=== PATIENT | male | born 1975 | race Caucasian/White ===

== ENCOUNTER 2016-10-31 01:17 | Emergency (ER) | payer OTHER ==
[~2016-10-31 01:17] MED LIST: CARAFATE1 GM/10 ML PO; HYDROCHLOROTH12.5 MG PO; PROTONIX 40MG T40 MG PO; SIMV10 PO; TOPROL XL 25MG25 MG PO
--- NOTE | 2016-10-31 02:20 | ED THROAT/DENTAL COMPLAINT ---
See Addendum History of Present Illness General Chief Complaint: Sore Throat, Dental Pain Stated Complaint: SORE THROAT "IT'S CUTTING MY AIR OFF" O2 97% Source: patient Exam Limitations: no limitations Vital Signs & Intake/Output Vital Signs & Intake/Output TRAIGE REVIEWED Allergies Coded Allergies: NO KNOWN ALLERGIES (06/01/15) Reconcile Medications Hydrochlorothiazide 12.5 MG CAP 1 CAP PO DAILY BP (Reported) Metoprolol Succ XL (Toprol XL 25MG) 25 MG TAB 1 TAB PO DAILY BP (Reported) Pantoprazole Sodium (Protonix) 40 MG TAB 40 MG PO DAILY ACID REFLUX Simvastatin (Zocor) 10 MG TAB 10 MG PO DAILY CHOLESTEROL (Reported) Sucralfate (Carafate) 1 GM/10 ML CARMEN 10 ML PO Q6H PRN ABDOMINAL PAIN Triage Nurses Notes Reviewed? yes HPI: Patient presents for evaluation of sore throat pain and the feeling of throat swelling that began yesterday. Patient states he began experiencing a sore throat yesterday morning and he began feeling the throat swelling at about 5 PM yesterday. The pain feels like a constant bruised feeling and that it is compressing his airway. At 10:00 yesterday evening he tried Motrin and Chloraseptic and cough drops without improvement. The pain worsens with swallowing. Patient denies any associated fever or cold symptoms. Patient is also having some mild shortness of breath due to symptoms. The pain is characterized currently at about 4 out of 10. Past History Medical History Any Pertinent Medical History? see below for history Neurological: NONE EENT: NONE Cardiovascular: hypertension, hyperlipidemia Respiratory: NONE Gastrointestinal: PANCREATITIS Hepatic: NONE Renal: NONE Musculoskeletal: NONE Psychiatric: NONE Endocrine: NONE Blood Disorders: NONE Cancer(s): NONE [employer] SEATING/Reproductive: NONE Surgical History Surgical History: non-contributory Psychosocial History What is your primary language Peruvian Family History Hx Contributory? No Review of Systems Review of Systems Constitutional: Reports: no symptoms. EENTM: Reports: see HPI. Respiratory: Reports: see HPI. Cardiovascular: Reports: no symptoms. GI: Reports: no symptoms. Genitourinary: Reports: no symptoms. Musculoskeletal: Reports: no symptoms. Skin: Reports: no symptoms. Neurological/Psychological: Reports: no symptoms. Hematologic/Endocrine: Reports: no symptoms. Immunologic/Allergic: Reports: no symptoms. All Other Systems: Reviewed and Negative Physical Exam Physical Exam Mouth/Throat: sEE BELOW Comments: Gen.: Well-nourished, well-developed, no acute respiratory distress. Head: Normocephalic, atraumatic. Eyes: Normal inspection bilaterally Ears: Normal inspection bilaterally Nose: Normal inspection Throat/mouth : Moist mucosa Neck: Supple, full range of motion, no goiter Heart: Regular rate and rhythm, no murmurs rubs or gallops Lungs: Clear to auscultation bilaterally with normal air entry Chest: Nontender Back: Normal range of motion Abdomen: Soft, nontender, nondistended, normal bowel sounds Extremities: Normal range of motion grossly, equal radial pulses, no cyanosis clubbing or edema Neurologic: Cranial nerves grossly intact, speech is clear Skin: warm and dry Psychiatric: Calm, cooperative, no apparent delusions or hallucinations Core Measures ACS in differential dx? No Severe Sepsis Present: No Septic Shock Present: No Progress Differential Diagnosis: epiglottitis, Ludwigs angina, odontogenic abscess, kip- tonsillar abscess, strep pharyngitis Plan of Care: Current Medications Sig/Dmitriy Start time Last Medication Dose Stop Time Status Admin Amoxicillin 500 MG ONCE ONE 10/31 229 UNVr (Amoxil) 10/31 230 Dexamethasone 8 MG ONCE ONE 10/31 229 UNVr (Decadron) 10/31 230 SEE D/C INSTRUCTIONS (VIANNEY PRIEST,FRANKLIN Yeh) Departure Departure Disposition: HOME OR SELF CARE Condition: Stable Clinical Impression Primary Impression: Pharyngitis Qualifiers: Pharyngitis/tonsillitis etiology: unspecified etiology Qualified Code: J02.9 - Acute pharyngitis, unspecified Referrals: TRAVIS RENE MD (PCP/Family) Additional Instructions: Amoxicillin as prescribed. [id number] pain medication if needed for sore throat pain. Follow-up with your primary care doctor if not improving over the next 48-72 hours. Return if any concerns or sudden worsening. Thank you for choosing the [facility] for your care. It was a pleasure to serve you today. Franklin Gill M.D. [facility] Departure Forms: Customer Survey General Discharge Information Prescriptions: Current Visit Scripts Amoxicillin 1 CAP PO TID #30 CAP
[2016-10-31] MEDS ORDERED: AMOXICILLIN500 M2 PO (02:29)
[2016-10-31 02:41] VITALS: BP 138/78
== END 2016-10-31 02:54 ==
LOC: ERH 01:17
DX: J02.9 Acute pharyngitis, unspecified (principal)
CPT/HCPCS: 96372